=== PATIENT | male | born 1955 | race Caucasian/White ===

== ENCOUNTER 2020-08-08 04:01 | Emergency (ER) | payer MEDICARE ==
--- NOTE | 2020-08-08 07:02 | ER Document Report ---
ED General - General Chief Complaint: Cough Stated Complaint: SHORTNESS OF BREATH/ABDOMINAL PAIN Time Seen by Provider: 08/08/20 06:14 Notes: Patient with history of stroke and communication difficulties presents with couple days of intermittent abdominal pain and diarrhea, with shortness of breath and cough. The cough is minor the shortness of breath is mild, there is no sputum or fever. He has felt fatigued and winded on minor exertion as well. No leg swelling no chest pain no history of CHF. He is answering only yes or no questions given his history of aphasia He had 1 or 2 episodes of diarrhea yesterday with nausea but no vomiting. He points to his lower abdomen generally when asked where it hurts. - Related Data Allergies/Adverse Reactions: No Known Allergies Allergy (Unverified 08/08/20 04:22) Past Medical History - General Information source: Patient - Social History Smoking Status: Former Smoker Frequency of alcohol use: None Drug Abuse: None Family History: None Review of Systems - Review of Systems Notes: REVIEW OF SYSTEMS GEN: Denies fever, chills, weight loss ENT: Denies sore throat, nasal discharge, ear pain EYES: Denies blurry vision, eye pain, discharge CV: Denies chest pain, palpitations, edema RESP: As of breath mild cough GI: Blunt pain diarrhea MSK: Denies joint pain/swelling, edema, SKIN: Denies rash, skin lesions LYMPH: Denies swollen glands/lymph nodes NEURO: Denies headache, focal weakness or numbness, dizziness PSYCH: Denies depression, suicidal or homicidal ideation PHYSICAL EXAMINATION General: No acute distress, well-nourished Head: Atraumatic, normocephalic ENT: Mouth normal, oropharynx moist, no exudates or tonsillar enlargement Eyes: Conjunctiva normal, pupils equal, lids normal Neck: No JVD, supple, no guarding CVS: Normal rate, regular rhythm, no murmurs Resp: No resp distress, equal and normal breath sounds bilaterally GI: Lower abdominal tenderness without rebound or guarding Ext: No deformities, no edema, normal range of motion in upper and lower ext Back: No CVA or midline TTP Skin: No rash, warm Lymphatic: No lymphadeopathy noted Neuro: Awake, alert. Face symmetric. GCS 15. Physical Exam - Vital signs Vitals: Temp Pulse Resp BP Pulse Ox 98.1 F 104 H 18 136/95 H 97 08/08/20 04:12 08/08/20 04:12 08/08/20 04:12 08/08/20 04:12 08/08/20 04:12 Course - Re-evaluation Re-evalutation: 08/08/20 08:18 Patient has lower abdominal pain diarrhea and cough concerning for COVID-19 gastroenteritis diverticulitis or other intra-abdominal infectious source His white count is normal his labs look okay Covid is pending He asked the nurses to leave and I went in and got him to stay for a CT given that he has some hematuria. He then told nursing he wanted to leave again, I met with him again at age 17 and we had a full AGAINST MEDICAL ADVICE conversation during which he expressed a desire to leave Patient appears to be making a decision consistent with his own values, of normal intelligence not intoxicated and able to refuse care Standard precautions given I have discussed with the patient there likely diagnosis, aftercare plan, follow-up plans and my usual and customary return precautions. They verbalized understanding of this. Please note that clinical decision making for this patient was made during the 2019 pandemic of novel coronavirus which caused a significant strain on the healthcare system including at this particular facility. Criteria for admission, discharge and level of care decisions as well as treatment decisions have necessarily changed. - Vital Signs Vital signs: Temp Pulse Resp BP Pulse Ox 98.1 F 104 H 18 136/95 H 97 08/08/20 04:12 08/08/20 04:12 08/08/20 04:12 08/08/20 04:12 08/08/20 04:12 - Laboratory Results Result Diagrams: 08/08/20 06:48 08/08/20 06:48 Laboratory Results Interpreted: 08/08/20 08/08/20 08/08/20 06:48 06:48 06:48 Band Neutrophils % 1 L Sodium 133.7 L Glucose 217 H Urine Protein 30 H Urine Blood MODERATE H Urine Ascorbic Acid 20 H Critical Laboratory Results Reviewed: No Critical Results - Radiology Results Critical Radiology Results Reviewed: No Critical Results - EKG Interpretation by Me EKG shows normal: Sinus rhythm Rate: Normal Rhythm: NSR When compared to previous EKG there are: Previous EKG unavailable Additional EKG results interpreted by me: 08/08/20 07:[address] depression or elevation no T wave inversion no arrhythmia Discharge - Discharge Clinical Impression: Abdominal pain Qualifiers: Abdominal location: unspecified location Qualified Code(s): R10.9 - Unspecified abdominal pain Condition: Fair Disposition: AGAINST MEDICAL ADVICE Instructions: COVID-19 Guidance for Persons Under Investigation, Abdominal Pain ([facility]) Additional Instructions: Return to the emergency room at any point to finish your testing for abdominal pain follow-up with your primary care doctor soon as possible as well
[2020-08-08 07:14] LABS: APPEARANCE,URINE SLIGHTLY-CLOUDY; BILIRUBIN,URINE NEGATIVE (NEGATIVE); COLOR,URINE YELLOW; GLUCOSE, URINE NEGATIVE (NEGATIVE); KETONES,URINE NEGATIVE (NEGATIVE); LEUKOCYTE ESTERASE,URINE NEGATIVE (NEGATIVE); NITRITE,URINE NEGATIVE (NEGATIVE); PROTEIN,URINE 30 mg/dL (NEGATIVE); URINE SPECIFIC GRAVITY 1.018; UROBILINOGEN,URINE NEGATIVE mg/dL (<2.0)
[2020-08-08 07:20] LABS: HEMATOCRIT 44.3 % (37.9-51.0); HEMOGLOBIN 15.4 g/dL (13.5-17.0); MEAN CORPUSCULAR HEMOGLOBIN 30.5 pg (27.0-33.4); MEAN CORPUSCULAR HGB CONC 34.7 g/dL (32.0-36.0); MEAN CORPUSCULAR VOLUME 88 fl (80-97); PLATELET COUNT 160 10^3/uL (150-450); RED BLOOD COUNT 5.04 10^6/uL (4.35-5.55); RED CELL DISTRIBUTION WIDTH 13.5 % (11.5-14.0); WHITE BLOOD COUNT 8.6 10^3/uL (4.0-10.5)
--- NOTE | 2020-08-08 07:37 | RADIOLOGY REPORT (SQ) ---
EXAM DESCRIPTION: X-ray single view chest. CLINICAL HISTORY: 65 years Male, sob COMPARISON: None. TECHNIQUE: Single portable x-ray view of the chest performed on 08/08/2020 at 6:56 AM FINDINGS: The lungs are well expanded and are clear. There is no evidence of a pneumothorax. The cardiac silhouette is normal in size and configuration. The mediastinal contours are normal. No acute osseous abnormality is identified. No focal soft tissue abnormalities are seen. Lines and tubes: None. IMPRESSION: No evidence of acute intrathoracic disease.
[2020-08-08 07:40] LABS: ALBUMIN 4.2 g/dL (3.5-5.0); ALKALINE PHOSPHATASE 113 U/L (38-126); ANION GAP 9 (5-19); ASPARTATE AMINO TRANSFERASE 22 U/L (17-59); BILIRUBIN,TOTAL 0.6 mg/dL (0.2-1.3); BLOOD UREA NITROGEN 14 mg/dL (7-20); CALCIUM 9.3 mg/dL (8.4-10.2); CARBON DIOXIDE 26 mmol/L (22-30); CHLORIDE 99 mmol/L (98-107); GLUCOSE 217 mg/dL (75-110); POTASSIUM 3.8 mmol/L (3.6-5.0); TOTAL PROTEIN 6.8 g/dL (6.3-8.2)
[2020-08-08 07:49] LABS: ABSOLUTE LYMPHOCYTES# (MANUAL) 2.2 10^3/uL (0.5-4.7); ABSOLUTE MONOCYTES # (MANUAL) 0.9 10^3/uL (0.1-1.4); BAND NEUTROPHILS % (MANUAL) 1 % (3-5); BASOPHILS % (MANUAL) 0 % (0-2); EOSINOPHILS % (MANUAL) 0 % (0-6); LYMPHOCYTES % (MANUAL) 20 % (13-45); MONOCYTES % (MANUAL) 11 % (3-13); POLYCHROMASIA SLIGHT; SEGMENTED NEUTROPHILS % (MAN) 63 % (42-78); TOTAL CELLS COUNTED 100
[2020-08-08 07:50] LABS: PLATELET COMMENT ADEQUATE
[2020-08-08 08:33] VITALS: BP 130/90
--- NOTE | 2020-08-08 18:54 | EKG REPORT ---
SEVERITY:- NORMAL ECG - SINUS RHYTHM : Confirmed by: Lenny Hernandez 08-Aug-2020 18:53:55
== END 2020-08-08 08:34 | disposition left against medical advice (07) ==
LOC: ER 04:01
DX: U07.1 COVID-19 (principal); R10.9 Unspecified abdominal pain; R05 Cough; R06.02 Shortness of breath; R19.7 Diarrhea, unspecified; R53.83 Other fatigue; R47.01 Aphasia; R10.30 Lower abdominal pain, unspecified; Z87.891 Personal history of nicotine dependence
CPT/HCPCS: 93005; 99285; 36415; 83735; 85025; 80053; 81001; 71045; 93010; U0003; C9803; 87635

== ENCOUNTER 2020-08-15 13:02 | Emergency (ER) | payer MEDICARE ==
[2020-08-15 13:14] VITALS: BP 112/72
--- NOTE | 2020-08-15 15:45 | RADIOLOGY REPORT (SQ) ---
EXAM DESCRIPTION: CHEST SINGLE VIEW IMAGES COMPLETED DATE/TIME: 08/15/2020 12:33 pm REASON FOR STUDY: cough, COVID+ COMPARISON: 08/08/2020 EXAM PARAMETERS: NUMBER OF VIEWS: One view. TECHNIQUE: Single frontal radiographic view of the chest acquired. RADIATION DOSE: NA LIMITATIONS: None. FINDINGS: LUNGS AND PLEURA: New patchy airspace opacities in the right lung, more pronounced in the periphery. There are some mild left lower peripheral opacities also increased from prior. No pleura l effusion or pneumothorax. MEDIASTINUM AND HILAR STRUCTURES: No masses. Contour normal. HEART AND VASCULAR STRUCTURES: Heart normal in size. Normal vasculature. BONES: No acute findings. HARDWARE: None in the chest. OTHER: No other significant finding. IMPRESSION: New patchy peripheral opacities, right greater than left. TECHNICAL DOCUMENTATION: JOB ID: [id number] 2010 [employer]- All Rights Reserved Reading location - IP/workstation name: [email or web address]
--- NOTE | 2020-08-15 16:29 | ER Document Report ---
ED Respiratory Problem - General Chief Complaint: Flu Symptoms Stated Complaint: COUGH,CONGESTION Time Seen by Provider: 08/15/20 14:31 Primary Care Provider: SRIDHAR PÉREZ MD [ACTIVE STAFF] - Follow up as needed - HPI Notes: Patient is a 65 y/o male who presents with cough and nasal congestion that has been ongoing for the past nine days. Patient was seen in the ED on 08/08/2020 and tested positive for COVID-19. He reports myalgias and fatigue but denies chest pain, shortness of breath, abdominal pain, vomiting, diarrhea and fever. He has not been taking any medications for relief. - Related Data Allergies/Adverse Reactions: No Known Allergies Allergy (Unverified 08/08/20 04:22) Past Medical History - General Information source: Patient - Social History Smoking Status: Never Smoker Frequency of alcohol use: None Drug Abuse: None Family History: None - Past Medical History Cardiac Medical History: Reports: Hx Heart Attack - 2015, Hx Hypercholesterolemia, Hx Hypertension Endocrine Medical History: Reports: Hx Diabetes Mellitus Type 2 Review of Systems - Review of Systems Constitutional: See HPI EENT: See HPI Cardiovascular: No symptoms reported Respiratory: See HPI Gastrointestinal: No symptoms reported Genitourinary: No symptoms reported Male Genitourinary: No symptoms reported Musculoskeletal: No symptoms reported Skin: No symptoms reported Hematologic/Lymphatic: No symptoms reported Neurological/Psychological: No symptoms reported Physical Exam - Vital signs Vitals: Temp Pulse Resp BP Pulse Ox 98.1 F 72 20 112/72 97 08/15/20 13:12 08/15/20 13:12 08/15/20 13:12 08/15/20 13:12 08/15/20 13:12 - Notes Notes: PHYSICAL EXAMINATION: VITALS: Vitals reviewed and within normal limits. GENERAL: Well-appearing, well-nourished and in no acute distress. HEAD: Atraumatic, normocephalic. EYES: Pupils equal, round, and reactive to light, extraocular movements intact, sclera anicteric, conjunctiva are normal. ENT: Nares patent. Moist mucous membranes. Oropharynx clear without exudates. NECK: Normal range of motion, supple without lymphadenopathy. LUNGS: Breath sounds clear to auscultation bilaterally and equal. No wheezes, rales, or rhonchi. HEART: Regular, rate, and rhythm without murmurs. ABDOMEN: Soft, nontender, normoactive bowel sounds. No guarding, no rebound. No masses appreciated. EXTREMITIES: Normal range of motion, no pitting or edema. No cyanosis. NEUROLOGICAL: No focal neurological deficits. Moves all extremities spontaneously and on command. PSYCH: Normal mood, normal affect. SKIN: Warm, Dry, normal turgor, no rashes or lesions noted. Course - Re-evaluation Re-evalutation: Patient is a 65 y/o male who is COVID-19+ who presents with continued cough and congestion. Vital signs are within normal limits. On exam, lungs are clear to auscultation bilaterally. Chest x-ray shows new patchy peripheral opacities, right greater than left. Patient denies shortness of breath and is not hypoxic, patient's pneumonia will be managed outpatient. Prescriptions and prednisone will be given. Advised patient to take multivitamin and melatonin [id number]. Recommended that the patient follow-up with his primary care provider this week. Strict return precautions and follow-up instructions given. Patient understands and is in agreement with the plan. Patient will be discharged home. - Vital Signs Vital signs: Temp Pulse Resp BP Pulse Ox 98.1 F 72 20 112/72 97 08/15/20 13:12 08/15/20 13:12 08/15/20 13:12 08/15/20 13:12 08/15/20 13:12 - Laboratory Results Critical Laboratory Results Reviewed: No Critical Results - Radiology Results Radiology Results Interpreted: Chest X-Ray 08/15/20 15:15 IMPRESSION: New patchy peripheral opacities, right greater than left. Critical Radiology Results Reviewed: No Critical Results Discharge - Discharge Clinical Impression: COVID-19, Pneumonia due to COVID-19 virus, Cough Condition: Stable Disposition: HOME, SELF-CARE Instructions: COVID-19 Guidance for Persons Under Investigation Additional Instructions: You have been diagnosed with a pneumonia. It is very important that you take all of your antibiotics until they are gone even if you are feeling better. Take over the counter melatonin and multivitamin. Please return to the emergency department immediately if you began having worsening shortness of breath, become confused, have worsening pain, pass out, have persistent vomiting that prevents you from being able to drink fluids for more than 12 hours, or have any other symptoms that are worrisome to you. Please follow-up with your primary care doctor in the next 1-2 days. Prescriptions: Prednisone [Deltasone 20 mg Tablet] 60 mg PO DAILY 5 Days #15 tablet Azithromycin [Zithromax 250 mg Tablet] 250 mg PO ASDIR PRN #6 tablet PRN Reason: Referrals: SRIDHAR PÉREZ MD [ACTIVE STAFF] - Follow up as needed
== END 2020-08-15 18:01 | disposition home or self-care (01) ==
LOC: ER 13:02
DX: U07.1 COVID-19 (principal); J12.89 Other viral pneumonia; R05 Cough; R09.81 Nasal congestion; M79.10 Myalgia, unspecified site; R53.83 Other fatigue; I10 Essential (primary) hypertension; E11.9 Type 2 diabetes mellitus without complications
CPT/HCPCS: 71045; 99283

== ENCOUNTER 2020-08-20 09:50 | Inpatient (IN) | payer MEDICARE ==
[2020-08-20] MEDS ORDERED: ALBUTEROL SULFATE 0.083% NEB 2.5 MG/3 ML AMPUL NEB ONE (11:35)
[2020-08-20] MEDS ORDERED: DEXAMETHASONE SOD PHOS INJ 10 MG/1 ML VIAL IV ONE (11:36)
--- NOTE | 2020-08-20 12:00 | RADIOLOGY REPORT (SQ) ---
EXAM DESCRIPTION: CHEST SINGLE VIEW IMAGES COMPLETED DATE/TIME: 08/20/2020 11:34 am REASON FOR STUDY: COVID, worsening SOB COMPARISON: AP view of the chest from 08/15/2020. EXAM PARAMETERS: NUMBER OF VIEWS: One view. TECHNIQUE: An AP view of the chest was obtained. RADIATION DOSE: NA LIMITATIONS: None. FINDINGS: LUNGS AND PLEURA: Increased bilateral upper lobe predominant and peripheral patchy parench ymal opacities. There is no sizable pleural effusion or pneumothorax. MEDIASTINUM AND HILAR STRUCTURES: No mediastinal or hilar contour abnormality. HEART AND VASCULAR STRUCTURES: The cardiac silhouette and pulmonary vasculature are within normal johnson its. BONES: No acute findings. HARDWARE: None in the chest. OTHER: No other finding. IMPRESSION: Increased bilateral upper lobe predominant and peripheral patchy parenchymal opacities. TECHNICAL DOCUMENTATION: JOB ID: [id number] 2010 [employer]- All Rights Reserved Reading location - IP/workstation name: [email or web address]
[2020-08-20 12:20] LABS: ABSOLUTE LYMPHOCYTES (AUTO) 1.5 10^3/uL (0.5-4.7); ABSOLUTE MONOCYTES (AUTO) 1.1 10^3/uL (0.1-1.4); BASOPHILS % (AUTO) 0.1 % (0-2); EOSINOPHILS % (AUTO) 0.3 % (0-6); HEMATOCRIT 39.2 % (37.9-51.0); HEMOGLOBIN 13.9 g/dL (13.5-17.0); LYMPHOCYTES % (AUTO) 13.1 % (13-45); MEAN CORPUSCULAR HEMOGLOBIN 30.3 pg (27.0-33.4); MEAN CORPUSCULAR HGB CONC 35.4 g/dL (32.0-36.0); MEAN CORPUSCULAR VOLUME 86 fl (80-97); MONOCYTES % (AUTO) 9.7 % (3-13); PLATELET COUNT 339 10^3/uL (150-450); RED BLOOD COUNT 4.58 10^6/uL (4.35-5.55); RED CELL DISTRIBUTION WIDTH 13.5 % (11.5-14.0); SEGMENTED NEUTROPHILS % (AUTO) 76.8 % (42-78); TOTAL CELLS COUNTED % (AUTO) 100 %; WHITE BLOOD COUNT 11.7 10^3/uL (4.0-10.5)
[2020-08-20 12:40] LABS: ALBUMIN 3.5 g/dL (3.5-5.0); ALKALINE PHOSPHATASE 142 U/L (38-126); ANION GAP 10 (5-19); ASPARTATE AMINO TRANSFERASE 41 U/L (17-59); BILIRUBIN,DIRECT 0.2 mg/dL (0.0-0.4); BLOOD UREA NITROGEN 15 mg/dL (7-20); CALCIUM 8.9 mg/dL (8.4-10.2); CARBON DIOXIDE 26 mmol/L (22-30); CHLORIDE 96 mmol/L (98-107); GLUCOSE 222 mg/dL (75-110); POTASSIUM 4.1 mmol/L (3.6-5.0); TOTAL PROTEIN 6.5 g/dL (6.3-8.2)
[2020-08-20 13:05] LABS: ARTERIAL BLOOD BASE EXCESS 1.5 mmol/L; ARTERIAL BLOOD H2CO3 0.84 mmol/L (1.05-1.35); ARTERIAL BLOOD O2 SATURATION 95.5 % (94-98); ARTERIAL BLOOD PCO2 27.9 mmHg (35-45); ARTERIAL BLOOD PH 7.53 (7.35-7.45); ARTERIAL BLOOD TOTAL CO2 23.9 mmol/L (23-27)
[2020-08-20 13:06] LABS: ARTERIAL BLOOD FIO2 2.5L
--- NOTE | 2020-08-20 13:40 | ER Document Report ---
ED General - General Chief Complaint: Breathing Difficulty Stated Complaint: COUGH Time Seen by Provider: 08/20/20 10:37 - HPI Notes: 65-year-old male with past medical history for hypertension, diabetes, stroke with residual right-sided weakness and speech difficulties to the emergency department with his for progressively worsening shortness of breath and cough over the past 3 weeks. On August 08 he was diagnosed with Covid. He returned to the emergency department with cough and shortness of breath on August 15. He was given at that time a Z-Oscar and steroids. reports that he got a little bit brother briefly but last night has gotten significantly worse. When patient arrived here in the emergency department his oxygen level was between 88 to 90% on room air. Patient denies any chest pain, headache, body ache. He does admit that he is short of breath. He has residual expressive aphasia from his stroke so he has some difficulty telling his story. He does not currently have a primary care physician. - Related Data Allergies/Adverse Reactions: No Known Allergies Allergy (Unverified 08/08/20 04:22) Past Medical History - General Information source: Patient - Social History Smoking Status: Former Smoker Frequency of alcohol use: None Drug Abuse: None Lives with: Spouse/Significant other Family History: Reviewed & Not Pertinent, Hypertension Patient has homicidal ideation: No - Past Medical History Cardiac Medical History: Reports: Hx Heart Attack - 2015, Hx Hypercholestero lemia, Hx Hypertension Endocrine Medical History: Reports: Hx Diabetes Mellitus Type 2 Review of Systems - Review of Systems Constitutional: denies: Chills, Fever EENT: No symptoms reported Cardiovascular: denies: Chest pain, Palpitations, Dizziness, Lightheaded Respiratory: See HPI, Cough, Short of breath Gastrointestinal: No symptoms reported Genitourinary: No symptoms reported Musculoskeletal: No symptoms reported Skin: No symptoms reported Hematologic/Lymphatic: No symptoms reported Neurological/Psychological: No symptoms reported -: Yes All other systems reviewed and negative Physical Exam - Vital signs Vitals: Temp Pulse Resp BP Pulse Ox 98.3 F 101 H 24 H 128/88 H 91 L 08/19/20 22:00 08/19/20 22:00 08/19/20 22:00 08/19/20 22:00 08/19/20 22:00 Interpretation: Tachycardic, Hypoxic, Tachypneic - Notes Notes: PHYSICAL EXAMINATION: GENERAL: Patient is coughing and tachypneic. He appears to be in mild respiratory distress HEAD: Atraumatic, normocephalic. EYES: Pupils equal round and reactive to light, extraocular movements intact, sclera anicteric, conjunctiva are normal. ENT: nares patent, oropharynx clear without exudates. Moist mucous membranes. TMs clear bilaterally NECK: Normal range of motion, supple without lymphadenopathy LUNGS: Decreased breath sounds particularly on the right lower base. Clear breath sounds on the left. Patient is tachypneic. He is notably hypoxic on room air. He ranges from about 88% to 90%. He improves once we put him on 2 L of oxygen on nasal cannula-he goes up to 95% HEART: Regular rate and rhythm without murmurs, no pitting edema ABDOMEN: Soft, nontender, normoactive bowel sounds. No guarding, no rebound. No masses appreciated. No CVA tenderness NEUROLOGICAL: Noted right arm deficit that from his prior stroke. He has very little use of it. He can ambulate about the room with ease. He also has expressive aphasia. This is also baseline. He is oriented to himself, place, and time. He has no facial droop. PSYCH: Normal mood, normal affect. SKIN: Warm, Dry, normal turgor, no rashes or lesions noted. Course - Re-evaluation Re-evalutation: Discussed patient with Dr. Ramos, my ER attending. He agrees with the plan for admission. Discussed the plan for admission with patient and his . They both agree with the plan. Spoke with Dr. Garibay, hospitalist. He agrees with the plan for admission. Would like him to go to Covid unit. He is aware that the patient just got off azithromycin and I did not add any other antibiotics. Is also aware that the patient seems to be satting okay at 2 L of oxygen on nasal cannula. He is aware of the patient's ABG as well as his worsening chest x-ray. Impression: Covid pneumonia with acute hypoxia and respiratory failure. Patient was given Decadron here in the emergency department as well as an albuterol nebulizer. He still remains hypoxic on room air when he takes oxygen off. He has been admitted to the hospitalist service for Covid pneumonia with acute respiratory failure and hypoxia. - Vital Signs Vital signs: Temp Pulse Resp BP Pulse Ox 98.3 F 101 H 25 H 126/105 H 93 08/19/20 22:00 08/19/20 22:00 08/20/20 12:01 08/20/20 12:00 08/20/20 12:01 - Laboratory Results Result Diagrams: 08/20/20 11:48 08/20/20 11:48 Laboratory Results Interpreted: 08/20/20 08/20/20 08/20/20 11:48 11:48 11:48 WBC 11.7 H Absolute Neuts (auto) 9.0 H Carbonic Acid ABG pH ABG pCO2 ABG pO2 Sodium 132.0 L Chloride 96 L Glucose 222 H Alkaline Phosphatase 142 H NT-Pro-B Natriuret Pep 204 H 08/20/20 12:32 WBC Absolute Neuts (auto) Carbonic Acid 0.84 L ABG pH 7.53 H ABG pCO2 27.9 L ABG pO2 67.0 L Sodium Chloride Glucose Alkaline Phosphatase NT-Pro-B Natriuret Pep Critical Laboratory Results Reviewed: Yes Attending or Supervising Physician who Reviewed Labs: RADHA ARMOS - Radiology Results Critical Radiology Results Reviewed: No Critical Results - EKG Interpretation by Me Additional EKG results interpreted by me: 08/20/20 15:12 Great: 91 Rhythm: Sinus rhythm Interpretation: No STEMI, no ST changes, no significant difference from prior on August 08, 2020 Discharge - Discharge Clinical Impression: Pneumonia due to COVID-19 virus, Hypoxia Condition: Fair Disposition: ADMITTED INPATIENT Admitting Provider: Lani (Hospitalist) Unit Admitted: [facility]
[2020-08-20] MEDS ORDERED: ONDANSETRON HCL INJ/PF 4 MG/2 ML SDV IV PRN (13:46)
[2020-08-20] MEDS ORDERED: IPRATROPIUM/ALBUTEROL 0.5-2.5 MG/3 ML AMPUL NEB PRN (13:46)
[2020-08-20] MEDS: BENZONATATE 100 MG CAPSULE PO SCH ×2 (14:27→22:09)
--- NOTE | 2020-08-20 14:31 | PDOC H&P ---
History of Present Illness Admission Date/PCP: 08/20/20 14:04 Patient complains of: Came in with complaints of cough and shortness of breath for 2 weeks History of Present Illness: DEANN EM is a 65 year old male history of hypertension, diabetes mellitus, stroke 6 years ago with right-sided weakness and difficulty in articulation was tested positive for COVID-August 08 came to the ER with complaints of shortness of breath associated with cough. Pulse ox is in the 80s on arrival requiring oxygen supplementation. At the time of my examination pulse ox is 96% 2 L. Chest x-ray indicated above worsening opacifications. WBC count is elevated 11,700. Acute phase reactant lab work is pending. Medical consult was called for admission. Patient agreed to stay in the hospital for further management. Past Medical History Cardiac Medical History: Reports: Myocardial Infarction - 2015, Hyperlipidema, H ypertension Endocrine Medical History: Reports: Diabetes Mellitus Type 2 Past Surgical History Past Surgical History: Reports: None Social History Information Source: Patient Smoking Status: Unknown if Ever Smoked Electronic Cigarette use?: No Hx Recreational Drug Use: No Hx Prescription Drug Abuse: No - Advance Directive Resuscitation Status: Full Code Family History Family History: None Parental Family History Reviewed: Yes - Family history of hypertension, diabetes mellitus Children Family History Reviewed: Yes Sibling(s) Family History Reviewed.: Yes Medication/Allergy Home Medications: Azithromycin [Zithromax 250 mg Tablet] 250 mg PO ASDIR PRN #6 tablet 08/15/20 Prednisone [Deltasone 20 mg Tablet] 60 mg PO DAILY 5 Days #15 tablet 08/15/20 Allergies/Adverse Reactions: No Known Allergies Allergy (Unverified 08/08/20 04:22) Review of Systems Constitutional: PRESENT: fatigue, weakness. ABSENT: fever(s), night sweats Eyes: ABSENT: visual disturbances Ears: ABSENT: hearing changes Nose, Mouth, and Throat: ABSENT: sore throat Cardiovascular: PRESENT: dyspnea on exertion. ABSENT: edema, orthropnea, palpit ations Respiratory: PRESENT: dyspnea Gastrointestinal: ABSENT: abdominal pain, constipation, diarrhea, hematemesis, hematochezia, nausea, vomiting Genitourinary: ABSENT: dysuria, hematuria Musculoskeletal: ABSENT: joint swelling Integumentary: ABSENT: rash, wounds Neurological: ABSENT: abnormal gait, abnormal speech, confusion, dizziness, focal weakness, syncope Psychiatric: ABSENT: anxiety, depression, homidical ideation, suicidal ideation Physical Exam Vital Signs: Temp Pulse Resp BP Pulse Ox 98.3 F 101 H 25 H 126/105 H 93 08/19/20 22:00 08/19/20 22:00 08/20/20 12:01 08/20/20 12:00 08/20/20 12:01 Intake & Output 08/19/20 08/20/20 08/21/20 06:59 06:59 06:59 Weight 93.3 kg General appearance: PRESENT: no acute distress, cooperative, well-developed Head exam: PRESENT: atraumatic Eye exam: PRESENT: PERRLA Ear exam: PRESENT: normal external ear exam Mouth exam: PRESENT: neck supple Teeth exam: PRESENT: poor dentation Neck exam: ABSENT: carotid bruit, JVD, lymphadenopathy, thyromegaly Respiratory exam: PRESENT: decreased breath sounds Cardiovascular exam: PRESENT: RRR. ABSENT: diastolic murmur, rubs, systolic murmur GI/Abdominal exam: PRESENT: normal bowel sounds, soft. ABSENT: distended, guarding, mass, organolmegaly, rebound, tenderness Rectal exam: PRESENT: deferred Extremities exam: PRESENT: full ROM. ABSENT: calf tenderness, clubbing, pedal edema Neurological exam: PRESENT: alert, altered, other - Patient has difficulty in articulation of speech, right-sided weakness present. Psychiatric exam: PRESENT: appropriate affect, normal mood. ABSENT: homicidal ideation, suicidal ideation Results Laboratory Results: 08/20/20 11:48 08/20/20 11:48 08/20/20 08/20/20 08/20/20 11:48 11:48 11:48 WBC 11.7 H RBC 4.58 Hgb 13.9 Hct 39.2 MCV 86 MCH 30.3 MCHC 35.4 RDW 13.5 Plt Count 339 Seg Neutrophils % 76.8 Carbonic Acid HCO3/H2CO3 Ratio ABG pH ABG pCO2 ABG pO2 ABG HCO3 ABG O2 Saturation ABG Base Excess FiO2 Sodium 132.0 L Potassium 4.1 Chloride 96 L Carbon Dioxide 26 Anion Gap 10 BUN 15 Creatinine 0.71 Est GFR ( Amer) > 60 Glucose 222 H Lactic Acid 1.5 Calcium 8.9 Total Bilirubin 1.0 AST 41 Alkaline Phosphatase 142 H Total Protein 6.5 Albumin 3.5 08/20/20 12:32 WBC RBC Hgb Hct MCV MCH MCHC RDW Plt Count Seg Neutrophils % Carbonic Acid 0.84 L HCO3/H2CO3 Ratio 27:1 ABG pH 7.53 H ABG pCO2 27.9 L ABG pO2 67.0 L ABG HCO3 23.0 ABG O2 Saturation 95.5 ABG Base Excess 1.5 FiO2 2.5L Sodium Potassium Chloride Carbon Dioxide Anion Gap BUN Creatinine Est GFR ( Amer) Glucose Lactic Acid Calcium Total Bilirubin AST Alkaline Phosphatase Total Protein Albumin 08/20/20 11:48 NT-Pro-B Natriuret Pep 204 H Impressions: Chest X-Ray 08/20/20 10:54 IMPRESSION: Increased bilateral upper lobe predominant and peripheral patchy parenchymal opacities. Assessment and Plan - Diagnosis (1) Pneumonia due to COVID-19 virus Is this a current diagnosis for this admission?: Yes Plan: 2119-patient is going to be admitted to [facility] as an inpatient with a diagnosis of COVID-19 pneumonia. Started on convulsant plasma, dexamethasone 6 mg IV daily, multivitamins including zinc, vitamin D, vitamin C, started on IV Rocephin 1 g daily, Zithromax 500 mg IV daily. Patient will be on treatment dose of Lovenox. bllod Cultures are pending patient started on DuoNeb nebulizations. (2) Hypoxia Is this a current diagnosis for this admission?: Yes Plan: 08/20/2020-patient came in with acute hypoxic respiratory failure most likely secondary to COVID-19 pneumonia. On oxygen supplementations. To continue DuoNeb nebulizations. (3) HTN (hypertension) Is this a current diagnosis for this admission?: No Plan: 08/20/2020-patient has history of chronic essential hypertension to resume his home medications. (4) Diabetes Is this a current diagnosis for this admission?: No Plan: 08/20/2020-patient has history of type [address] him on insulin sliding scale before meals and at bedtime. To resume his home medications. To check for hemoglobin A1c. (5) CVA (cerebral vascular accident) Is this a current diagnosis for this admission?: No Plan: 08/20/2020-patient history of CVA 6 years ago affecting the speech and right side of the body. To continue aspirin, atorvastatin at this time. - Time Anticipated Discharge Disposition: Home, Self Care Anticipated Discharge Timeframe: 5 days
[2020-08-20] MEDS: CEFTRIAXONE 1 GM/D5W RTU 1 GM/50 ML RTUPB IV SCH (15:16)
[2020-08-20 15:50] LABS: APPEARANCE,URINE CLEAR; BILIRUBIN,URINE NEGATIVE (NEGATIVE); COLOR,URINE YELLOW; GLUCOSE, URINE NEGATIVE (NEGATIVE); KETONES,URINE NEGATIVE (NEGATIVE); LEUKOCYTE ESTERASE,URINE NEGATIVE (NEGATIVE); NITRITE,URINE NEGATIVE (NEGATIVE); PROTEIN,URINE NEGATIVE (NEGATIVE); URINE SPECIFIC GRAVITY 1.006; UROBILINOGEN,URINE NEGATIVE mg/dL (<2.0)
[2020-08-20] MEDS: PANTOPRAZOLE SODIUM 40 MG TABLET.DR PO SCH (17:20)
--- NOTE | 2020-08-20 17:46 | RADIOLOGY REPORT (SQ) ---
EXAM DESCRIPTION: CTA CHEST IMAGES COMPLETED DATE/TIME: 08/20/2020 5:18 pm REASON FOR STUDY: r/o pe COMPARISON: None. TECHNIQUE: CT scan of the chest performed using helical scanning technique with dynamic intravenous contrast injection. Images reviewed with lung, soft tissue and bone windows. Reconstructed coronal and sagittal MPR images reviewed. Additional 3 dimensional post-processing performed to develop Maximal Intensity Projection images (MO P). All images stored on PACS. All CT scanners at this facility use dose modulation, iterative reconstruction, and/or weight based d osing when appropriate to reduce radiation dose to as low as reasonably achievable (ALARA). [facility]: Dose Right [facility]: CareDose [facility]: Dose Right [facility]: Teradose 4D [facility]: Health: [place] CONTRAST TYPE AND DOSE: contrast/concentration: Isovue 350.00 mmol/ml; Total Contrast Delivered: 75. 0 ml; Total Saline Delivered: 54.0 ml Contrast bolus optimized for the pulmonary arteries. Not diagnostic for the aorta. RENAL FUNCTION: Creatinine - 0.71 BUN=15 RADIATION DOSE: CT Rad equipment meets quality standard of care and radiation dose reduction techniq ues were employed. CTDIvol: 9.4 - 15.2 mGy. DLP: 615 mGy-cm. . LIMITATIONS: None. FINDINGS: LUNGS AND PLEURA: Bilateral multifocal peripheral ground-glass opacities in the lungs wit h focal areas of consolidation mainly in the upper 2/3's of the lungs, more so on the right. Clinica l imaging features raise the question of COVID pneumonia. Other diagnostic considerations include at ypical infections, inflammatory/infectious etiologies. No pneumothorax or pleural effusion. The leila tral airways are clear. AORTA AND GREAT VESSELS: No aneurysm. Contrast bolus not optimized for the aorta. HEART: No pericardial effusion. Focal areas of coronary artery calcifications. PULMONARY ARTERIES: No emboli visualized in the main pulmonary arteries or the segmental branches. HILAR AND MEDIASTINAL STRUCTURES: No identified masses or abnormal nodes. HARDWARE: None in the chest. UPPER ABDOMEN: Splenule, normal anatomic variant. Limited exam. THYROID AND OTHER SOFT TISSUES: No masses. No adenopathy. BONES: Small bone island in one of the upper thoracic vertebrae. 3D MIPS: Confirm above findings. OTHER: No other significant finding. IMPRESSION: 1. No evidence for acute pulmonary emboli 2. Bilateral multifocal peripheral ground-glass opacities in the lungs with focal areas of consolida tion, mainly in the upper 2/3's of the lungs, more so on the right. Clinical imaging features raise the question of COVID pneumonia. Other diagnostic considerations include atypical infections, inflam matory/infectious etiologies. COMMENT: Quality ID # [id number]: Final reports with documentation of one or more dose reduction techniques (e.g., Automated exposure control, adjustment of the mA and/or kV according to patient size, use of iterative reconstruction technique) TECHNICAL DOCUMENTATION: JOB ID: [id number] 2010 [employer]- All Rights Reserved Reading location - IP/workstation name: [email or web address]
[2020-08-20] MEDS: ASCORBIC ACID 500 MG TABLET PO SCH (19:01)
[2020-08-20] MEDS: AZITHROMYCIN 500 MG in DEXTROSE 5%-WATER 250 ML IV SCH (19:03)
[2020-08-20] MEDS ORDERED: ATORVASTATIN CALCIUM 20 MG TABLET PO SCH (22:00)
[2020-08-20] MEDS: ENOXAPARIN SODIUM INJ 100 MG/1 ML DISP.SYRIN SUBCUT SCH (22:09)
[2020-08-21] MEDS: NORMAL SALINE 1000 ML 1,000 ML IV PRN ×2 (03:50→17:29)
[2020-08-21] MEDS: PANTOPRAZOLE SODIUM 40 MG TABLET.DR PO SCH ×2 (06:17→17:29)
[2020-08-21] MEDS: BENZONATATE 100 MG CAPSULE PO SCH ×2 (06:17→13:13)
[2020-08-21 06:49] LABS: ABSOLUTE LYMPHOCYTES (AUTO) 1.3 10^3/uL (0.5-4.7); ABSOLUTE MONOCYTES (AUTO) 1.1 10^3/uL (0.1-1.4); ABSOLUTE NEUT (AUTO) 7.5 10^3/uL (1.7-8.2); BASOPHILS % (AUTO) 0.4 % (0-2); EOSINOPHILS % (AUTO) 0.1 % (0-6); HEMATOCRIT 39.6 % (37.9-51.0); HEMOGLOBIN 13.7 g/dL (13.5-17.0); MEAN CORPUSCULAR HGB CONC 34.5 g/dL (32.0-36.0); MEAN CORPUSCULAR VOLUME 87 fl (80-97); MONOCYTES % (AUTO) 11.1 % (3-13); PLATELET COUNT 331 10^3/uL (150-450); RED BLOOD COUNT 4.56 10^6/uL (4.35-5.55); RED CELL DISTRIBUTION WIDTH 13.6 % (11.5-14.0); SEGMENTED NEUTROPHILS % (AUTO) 75.4 % (42-78); TOTAL CELLS COUNTED % (AUTO) 100 %; WHITE BLOOD COUNT 9.9 10^3/uL (4.0-10.5)
[2020-08-21 07:17] LABS: ALBUMIN 3.4 g/dL (3.5-5.0); ALKALINE PHOSPHATASE 129 U/L (38-126); ANION GAP 10 (5-19); ASPARTATE AMINO TRANSFERASE 30 U/L (17-59); BILIRUBIN,DIRECT 0.2 mg/dL (0.0-0.4); BILIRUBIN,TOTAL 0.8 mg/dL (0.2-1.3); BLOOD UREA NITROGEN 18 mg/dL (7-20); C-REACTIVE PROTEIN 39.7 mg/L (<10.0); CALCIUM 8.9 mg/dL (8.4-10.2); CARBON DIOXIDE 25 mmol/L (22-30); CHLORIDE 102 mmol/L (98-107); CREATINE KINASE 104 U/L (55-170); GLUCOSE 256 mg/dL (75-110); POTASSIUM 4.3 mmol/L (3.6-5.0); TOTAL PROTEIN 6.3 g/dL (6.3-8.2)
[2020-08-21] MEDS: ZINC SULFATE 220 MG CAPSULE PO SCH (09:02)
[2020-08-21] MEDS: ASCORBIC ACID 500 MG TABLET PO SCH ×2 (09:02→17:29)
[2020-08-21] MEDS: CHOLECALCIFEROL (D3) 1,000 UNIT (25 MCG) TABLET PO SCH (09:02)
[2020-08-21] MEDS: ASPIRIN 81 MG TABLET, ENT COATED PO SCH (09:02)
[2020-08-21] MEDS: ENOXAPARIN SODIUM INJ 100 MG/1 ML DISP.SYRIN SUBCUT SCH (09:02)
[2020-08-21] MEDS: DEXAMETHASONE SOD PHOS INJ 10 MG/1 ML VIAL IV SCH (09:03)
[2020-08-21] MEDS ORDERED: AZITHROMYCIN INJ 500 MG VIAL IV SCH (10:00)
--- NOTE | 2020-08-21 12:22 | EKG REPORT ---
SEVERITY:- NORMAL ECG - SINUS RHYTHM : Confirmed by: Ulisses Garcia MD 21-Aug-2020 12:21:59
[2020-08-21] MEDS: CEFTRIAXONE 1 GM/D5W RTU 1 GM/50 ML RTUPB IV SCH (13:12)
--- NOTE | 2020-08-21 14:01 | PDOC PROGRESS REPORT ---
Subjective Date:: 08/21/20 Subjective:: Resting comfortably in bed. Appears to be on 2 L nasal cannula. He states that if he gets up and walks to the bathroom he does not get markedly short of breath. Appetite has only been fair. Reason For Visit: COVID-19 Physical Exam Vital Signs: Temp Pulse Resp BP Pulse Ox 98.8 F 72 18 142/88 H 96 08/21/20 10:00 08/21/20 11:49 08/21/20 11:49 08/21/20 11:49 08/21/20 11:49 Intake & Output 08/20/20 08/21/20 08/22/20 06:59 06:59 06:59 Intake Total 740 247 Balance 740 247 Weight 93.3 kg 94.5 kg General appearance: PRESENT: no acute distress, cooperative, well-developed Head exam: PRESENT: atraumatic, normocephalic Ear exam: PRESENT: normal external ear exam. ABSENT: bleeding, drainage Respiratory exam: PRESENT: rales - Faint on the right, symmetrical, unlabored. ABSENT: rhonchi, tachypnea, wheezes Cardiovascular exam: PRESENT: RRR, +S1, +S2. ABSENT: bradycardia, diastolic murmur, irregular rhythm, systolic murmur, tachycardia GI/Abdominal exam: PRESENT: normal bowel sounds, soft. ABSENT: distended, guarding, tenderness Rectal exam: PRESENT: deferred Gentrourinary exam: ABSENT: indwelling catheter Extremities exam: ABSENT: pedal edema Musculoskeletal exam: PRESENT: ambulatory, normal inspection. ABSENT: deformity, dislocation Neurological exam: PRESENT: alert, awake, oriented to person, oriented to place, oriented to time, oriented to situation, CN II-XII grossly intact. ABSENT: altered Psychiatric exam: PRESENT: appropriate affect. ABSENT: agitated, anxious Focused psych exam: ABSENT: delusional, paranoid, restlessness Skin exam: PRESENT: dry, normal color, warm. ABSENT: rash Results Laboratory Results: 08/21/20 05:26 08/21/20 05:26 08/20/20 08/20/20 08/21/20 15:38 15:52 05:26 WBC 9.9 RBC 4.56 Hgb 13.7 Hct 39.6 MCV 87 MCH 30.0 MCHC 34.5 RDW 13.6 Plt Count 331 Seg Neutrophils % 75.4 Sodium Potassium Chloride Carbon Dioxide Anion Gap BUN Creatinine Est GFR ( Amer) Glucose Calcium Ferritin Total Bilirubin AST Alkaline Phosphatase C-Reactive Protein Total Protein Albumin Urine Color YELLOW Urine Appearance CLEAR Urine pH 7.0 Ur Specific [place] 1.006 Urine Protein NEGATIVE Urine Glucose (UA) NEGATIVE Urine Ketones NEGATIVE Urine Blood NEGATIVE Urine Nitrite NEGATIVE Ur Leukocyte Esterase NEGATIVE Urine WBC (Auto) 0 Urine RBC (Auto) 1 Blood Type O POSITIVE 08/21/20 05:26 WBC RBC Hgb Hct MCV MCH MCHC RDW Plt Count Seg Neutrophils % Sodium 137.3 Potassium 4.3 Chloride 102 Carbon Dioxide 25 Anion Gap 10 BUN 18 Creatinine 0.75 Est GFR ( Amer) > 60 Glucose 256 H Calcium 8.9 Ferritin 599.00 H Total Bilirubin 0.8 AST 30 Alkaline Phosphatase 129 H C-Reactive Protein 39.7 H Total Protein 6.3 Albumin 3.4 L Urine Color Urine Appearance Urine pH Ur Specific [place] Urine Protein Urine Glucose (UA) Urine Ketones Urine Blood Urine Nitrite Ur Leukocyte Esterase Urine WBC (Auto) Urine RBC (Auto) Blood Type 08/20/20 14:54 Blood Blood Culture (PCR) - Final Streptococcus Species 08/20/20 08/21/20 11:48 05:26 Creatine Kinase 104 NT-Pro-B Natriuret Pep 204 H Impressions: Chest/Abdomen CTA 08/20/20 00:00 IMPRESSION: 1. No evidence for acute pulmonary emboli 2. Bilateral multifocal peripheral ground-glass opacities in the lungs with focal areas of consolidation, mainly in the upper 2/3's of the lungs, more so on the right. Clinical imaging features raise the question of COVID pneumonia. Other diagnostic considerations include atypical infections, infla mmatory/infectious etiologies. Chest X-Ray 08/20/20 10:54 IMPRESSION: Increased bilateral upper lobe predominant and peripheral patchy parenchymal opacities. 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: without half-way use Qualified Code(s): E11.65 - Type 2 diabetes mellitus with hyperglycemia Is this a current diagnosis for this admission?: Yes (4) HTN (hypertension) Qualifiers: Hypertension type: essential hypertension Qualified Code(s): I10 - Essential (primary) hypertension Is this a current diagnosis for this admission?: Yes (5) History of CVA (cerebrovascular accident) Is this a current diagnosis for this admission?: Yes (6) Hyperlipidemia due to type 2 diabetes mellitus Is this a current diagnosis for this admission?: Yes (7) Depression as late effect of cerebrovascular accident (CVA) Is this a current diagnosis for this admission?: Yes - Plan Summary Summary: (1) Pneumonia due to COVID-19 virus Is this a current diagnosis for this admission?: Yes Plan: 2119-patient is going to be admitted to [facility] as an inpatient with a diagnosis of COVID-19 pneumonia. Started on convulsant plasma, dexamethasone 6 mg IV daily, multivitamins including zinc, vitamin D, vitamin C, started on IV Rocephin 1 g daily, Zithromax 500 mg IV daily. Patient will be on treatment dose of Lovenox. bllod Cultures are pending patient started on DuoNeb nebulizations. (2) acute respiratory failure with hypoxia Is this a current diagnosis for this admission?: Yes Plan: 08/20/2020-patient came in with acute hypoxic respiratory failure most likely secondary to COVID-19 pneumonia. On oxygen supplementations. To continue DuoNeb nebulizations. (3) HTN (hypertension) Is this a current diagnosis for this admission?: No Plan: 08/20/2020-patient has history of chronic essential hypertension to resume his h ome medications. (4) hyperglycemia due to diabetes mellitus Is this a current diagnosis for this admission?: No Plan: 08/20/2020-patient has history of type [address] him on insulin sliding scale before meals and at bedtime. To resume his home medications. To check for hemoglobin A1c. (5) history of CVA Is this a current diagnosis for this admission?: No Plan: 08/20/2020-patient history of CVA 6 years ago affecting the speech and right side of the body. To continue aspirin, atorvastatin at this time. (6) depression (7) hyperlipidemia 08/21/2020 Acute hypoxic respiratory failure secondary to Covid pneumonia-continue antibiotics, steroids, supplements and supplemental oxygen as needed. Nebulizer treatments available as needed. Will discontinue therapeutic Lovenox and start prophylactic dose. Resume aspirin and Plavix for history of heart disease and stroke. Resume carvedilol, atorvastatin and Escitalopram. Continue diabetic/cardiac diet and resume Metformin. Accu-Cheks and sliding scale coverage. - Time Time Spent with patient: 15-24 minutes Medications reviewed and adjusted accordingly: Yes Anticipated Discharge Disposition: Home, Self Care Anticipated Discharge Timeframe: within 72 hours
[2020-08-21] MEDS ORDERED: DEXTROSE 50%-WATER 25 GM/50 ML DISP.SYRIN IV PRN ×2 (16:38)
[2020-08-21] MEDS ORDERED: DEXTROSE 40% GEL 15 GM TUBE PO PRN ×2 (16:38)
[2020-08-21] MEDS ORDERED: GLUCAGON,HUMAN RECOMB 1 MG INJ IM PRN (16:38)
[2020-08-21] MEDS ORDERED: HYDROXYZINE PAMOATE 25 MG CAPSULE PO PRN (16:46)
[2020-08-21] MEDS ORDERED: PROMETHAZINE HCL 25 MG TABLET PO PRN (16:47)
[2020-08-21] MEDS: ACETAMINOPHEN 325 MG TABLET PO PRN ×2 (17:28→23:41)
[2020-08-21] MEDS: AZITHROMYCIN 500 MG in DEXTROSE 5%-WATER 250 ML IV SCH (17:28)
[2020-08-21] MEDS: METFORMIN HCL 500 MG TABLET PO SCH (17:29)
[2020-08-21] MEDS: CARVEDILOL 6.25 MG TABLET PO SCH (23:40)
[2020-08-21] MEDS: INSULIN REG, HUMAN 100 UNIT/ML 3 ML VIAL (PYX) SUBCUT SCH (23:41)
[2020-08-22] MEDS: PANTOPRAZOLE SODIUM 40 MG TABLET.DR PO SCH (06:30)
[2020-08-22] MEDS: BENZONATATE 100 MG CAPSULE PO SCH ×3 (06:30→13:08)
[2020-08-22 06:51] LABS: ANION GAP 5 (5-19); BLOOD UREA NITROGEN 14 mg/dL (7-20); CALCIUM 8.7 mg/dL (8.4-10.2); CARBON DIOXIDE 25 mmol/L (22-30); CHLORIDE 106 mmol/L (98-107); GLUCOSE 104 mg/dL (75-110)
[2020-08-22] MEDS ORDERED: ATORVASTATIN CALCIUM 80 MG TABLET PO SCH (10:00)
[2020-08-22] MEDS ORDERED: ESCITALOPRAM OXALATE 10 MG TABLET PO SCH (10:00)
[2020-08-22] MEDS ORDERED: ENOXAPARIN SODIUM INJ 40 MG/0.4 ML DISP.SYRIN SUBCUT SCH (10:00)
[2020-08-22] MEDS ORDERED: CLOPIDOGREL BISULFATE 75 MG TABLET PO SCH (10:00)
[2020-08-22] MEDS: INSULIN REG, HUMAN 100 UNIT/ML 3 ML VIAL (PYX) SUBCUT SCH ×2 (11:19→11:34)
[2020-08-22] MEDS: ASCORBIC ACID 500 MG TABLET PO SCH (12:12)
[2020-08-22] MEDS: ZINC SULFATE 220 MG CAPSULE PO SCH (12:12)
[2020-08-22] MEDS: CHOLECALCIFEROL (D3) 1,000 UNIT (25 MCG) TABLET PO SCH (12:13)
[2020-08-22] MEDS: CARVEDILOL 6.25 MG TABLET PO SCH (12:13)
[2020-08-22] MEDS: DEXAMETHASONE SOD PHOS INJ 10 MG/1 ML VIAL IV SCH (12:13)
[2020-08-22] MEDS: METFORMIN HCL 500 MG TABLET PO SCH (12:13)
[2020-08-22] MEDS: ASPIRIN 81 MG TABLET, ENT COATED PO SCH (12:13)
[2020-08-22] MEDS: CEFTRIAXONE 1 GM/D5W RTU 1 GM/50 ML RTUPB IV SCH (12:15)
[2020-08-22 12:50] VITALS: BP 117/76
--- NOTE | 2020-08-22 13:01 | PDOC DISCHARGE SUMMARY ---
Impression - Admit/DC Date/PCP Admission Date/Primary Care Provider: 08/20/20 14:04 Discharge Date: 08/22/20 - Discharge Diagnosis (1) Acute respiratory failure with hypoxia Is this a current diagnosis for this admission?: Yes (2) Pneumonia due to COVID-19 virus Is this a current diagnosis for this admission?: Yes (3) Hyperglycemia due to type 2 diabetes mellitus Is this a current diagnosis for this admission?: Yes (4) HTN (hypertension) Is this a current diagnosis for this admission?: Yes (5) History of CVA (cerebrovascular accident) Is this a current diagnosis for this admission?: Yes (6) Hyperlipidemia due to type 2 diabetes mellitus Is this a current diagnosis for this admission?: Yes (7) Depression as late effect of cerebrovascular accident (CVA) Is this a current diagnosis for this admission?: Yes - Assessment Summary: (1) Pneumonia due to COVID-19 virus Is this a current diagnosis for this admission?: Yes Plan: 2119-patient is going to be admitted to [facility] as an inpatient with a diagnosis of COVID-19 pneumonia. Started on convulsant plasma, dexamethasone 6 mg IV daily, multivitamins including zinc, vitamin D, vitamin C, started on IV Rocephin 1 g daily, Zithromax 500 mg IV daily. Patient will be on treatment dose of Lovenox. bllod Cultures are pending patient started on DuoNeb nebulizations. (2) acute respiratory failure with hypoxia Is this a current diagnosis for this admission?: Yes Plan: 08/20/2020-patient came in with acute hypoxic respiratory failure most likely secondary to COVID-19 pneumonia. On oxygen supplementations. To continue DuoNeb nebulizations. (3) HTN (hypertension) Is this a current diagnosis for this admission?: No Plan: 08/20/2020-patient has history of chronic essential hypertension to resume his home medications. (4) hyperglycemia due to diabetes mellitus Is this a current diagnosis for this admission?: No Plan: 08/20/2020-patient has history of type [address] him on insulin sliding scale before meals and at bedtime. To resume his home medications. To check for hemoglobin A1c. (5) history of CVA Is this a current diagnosis for this admission?: No Plan: 08/20/2020-patient history of CVA 6 years ago affecting the speech and right side of the body. To continue aspirin, atorvastatin at this time. (6) depression (7) hyperlipidemia 08/21/2020 Acute hypoxic respiratory failure secondary to Covid pneumonia-continue antibiotics, steroids, supplements and supplemental oxygen as needed. Nebulizer treatments available as needed. Will discontinue therapeutic Lovenox and start prophylactic dose. Resume aspirin and Plavix for history of heart disease and stroke. Resume carvedilol, atorvastatin and Escitalopram. Continue diabetic/cardiac diet and resume Metformin. Accu-Cheks and sliding scale coverage. 08/22/2020 Patient has been stable on room air for over 12 hours. He appears very comfortable. He is back on his regular medications. He is stable for discharge to home. - Additional Information Resuscitation Status: Full Code Discharge Diet: Cardiac, Diabetic Discharge Activity: Activity As Tolerated, Slowly Increase Activity Prescriptions: Methylprednisolone [Methylpred Dp] 4 mg PO ASDIR #1 tab.ds.pk Benzonatate [Tessalon Perles 100 mg Capsule] 100 mg PO Q8 PRN 10 Days #30 capsule PRN Reason: Cough Azithromycin [Zithromax 250 mg Tablet] 250 mg PO DAILY #5 tablet Home Medications: Atorvastatin Calcium [Lipitor 80 mg Tablet] 80 mg PO DAILY 08/20/20 Carvedilol [Coreg 6.25 mg Tablet] 6.25 mg PO Q12 08/20/20 Clopidogrel Bisulfate [Plavix 75 mg Tablet] 75 mg PO DAILY 08/20/20 Diazepam [Valium] 5 mg PO DAILY 08/20/20 Escitalopram Oxalate [Lexapro 10 mg Tablet] 10 mg PO DAILY 08/20/20 Hydroxyzine Pamoate [Vistaril 25 mg Capsule] 25 mg PO BIDP PRN 08/20/20 Metformin HCl [Glucophage 500 mg Tablet] 500 mg PO BID 08/20/20 Permethrin [Acticin 5% Cream 60 gm] 60 gm TP DAILY 08/20/20 Ascorbic Acid [Vitamin C 500 mg Tablet] 500 mg PO BID tablet 08/22/20 Aspirin [Ecotrin 81 mg EC Tablet] 81 mg PO DAILY tabec 08/22/20 Azithromycin [Zithromax 250 mg Tablet] 250 mg PO DAILY #5 tablet 08/22/20 Benzonatate [Tessalon Perles 100 mg Capsule] 100 mg PO Q8 PRN 10 Days #30 capsule 08/22/20 Cholecalciferol (Vitamin D3) [Vitamin D3 1000 Unit Tablet] 2,000 unit PO DAILY tablet 08/22/20 Methylprednisolone [Methylpred Dp] 4 mg PO ASDIR #1 tab.ds.pk 08/22/20 Promethazine HCl [Phenergan 25 mg Tablet] 12.5 mg PO Q6HP PRN tablet 08/22/20 Zinc Sulfate [Zinc-220 Capsule] 220 mg PO DAILY capsule 08/22/20 History of Present Illiness History of Present Illness: DEANN EM is a 65 year old male with a history of hypertension, diabetes mellitus, stroke 6 years ago with right-sided weakness and difficulty in articulation was tested positive for COVID-August 08 came to the ER with complaints of shortness of breath associated with cough. Pulse ox is in the 80s on arrival requiring oxygen supplementation. At the time of my examination pulse ox is 96% 2 L. Chest x-ray indicated above worsening opacifications. WBC count is elevated 11,700. Acute phase reactant lab work is pending. Medical consult was called for admission. Patient agreed to stay in the hospital for further management. Hospital Course Hospital Course: As above Physical Exam Vital Signs: Temp Pulse Resp BP Pulse Ox 97.5 F 80 16 117/76 95 08/22/20 12:46 08/22/20 12:46 08/22/20 12:46 08/22/20 12:46 08/22/20 12:46 Intake & Output 08/21/20 08/22/20 08/23/20 06:59 06:59 06:59 Intake Total 740 3357 Output Total 955 600 Balance 740 2402 -600 Weight 94.5 kg 97 kg General appearance: PRESENT: no acute distress, cooperative, well-developed Respiratory exam: PRESENT: clear to auscultation yoko, symmetrical, unlabored. ABSENT: rales, rhonchi, tachypnea, wheezes Cardiovascular exam: PRESENT: RRR, +S1, +S2 GI/Abdominal exam: PRESENT: normal bowel sounds, soft. ABSENT: tenderness Rectal exam: PRESENT: deferred Musculoskeletal exam: PRESENT: ambulatory. ABSENT: deformity, dislocation Neurological exam: PRESENT: alert, awake, oriented to person, oriented to place, oriented to situation, aphasic - Still some aphasia as a late effect of his stroke. ABSENT: altered Results Laboratory Results: WBC 9.9 10^3/uL (4.0-10.5) 08/21/20 05:26 RBC 4.56 10^6/uL (4.35-5.55) 08/21/20 05:26 Hgb 13.7 g/dL (13.5-17.0) 08/21/20 05:26 Hct 39.6 % (37.9-51.0) 08/21/20 05:26 MCV 87 fl (80-97) 08/21/20 05:26 MCH 30.0 pg (27.0-33.4) 08/21/20 05:26 MCHC 34.5 g/dL (32.0-36.0) 08/21/20 05:26 RDW 13.6 % (11.5-14.0) 08/21/20 05:26 Plt Count 331 10^3/uL (150-450) 08/21/20 05:26 Lymph % (Auto) 13.0 % (13-45) 08/21/20 05:26 [place] % (Auto) 11.1 % (3-13) 08/21/20 05:26 Eos % (Auto) 0.1 % (0-6) 08/21/20 05:26 Baso % (Auto) 0.4 % (0-2) 08/21/20 05:26 Absolute Neuts (auto) 7.5 10^3/uL (1.7-8.2) 08/21/20 05:26 Absolute Lymphs (auto) 1.3 10^3/uL (0.5-4.7) 08/21/20 05:26 Absolute Monos (auto) 1.1 10^3/uL (0.1-1.4) 08/21/20 05:26 Absolute Eos (auto) 0.0 10^3/uL (0.0-0.6) 08/21/20 05:26 Absolute Basos (auto) 0.0 10^3/uL (0.0-0.2) 08/21/20 05:26 Seg Neutrophils % 75.4 % (42-78) 08/21/20 05:26 D-Dimer 0.41 ug/mL (0.00-0.50) 08/20/20 11:48 Carbonic Acid 0.84 mmol/L (1.05-1.35) L 08/20/20 12:32 HCO3/H2CO3 Ratio 27:1 08/20/20 12:32 ABG pH 7.53 (7.35-7.45) H 08/20/20 12:32 ABG pCO2 27.9 mmHg (35-45) L 08/20/20 12:32 ABG pO2 67.0 mmHg (80-100) L 08/20/20 12:32 ABG HCO3 23.0 mmol/L (20-24) 08/20/20 12:32 ABG Total CO2 23.9 mmol/L (23-27) 08/20/20 12:32 ABG O2 Saturation 95.5 % (94-98) 08/20/20 12:32 ABG Base Excess 1.5 mmol/L 08/20/20 12:32 FiO2 2.5L 08/20/20 12:32 Sodium 136.3 mmol/L (137-145) L 08/22/20 05:43 Potassium 4.0 mmol/L (3.6-5.0) 08/22/20 05:43 Chloride 106 mmol/L (98-107) 08/22/20 05:43 Carbon Dioxide 25 mmol/L (22-30) 08/22/20 05:43 Anion Gap 5 (5-19) 08/22/20 05:43 BUN 14 mg/dL (7-20) 08/22/20 05:43 Creatinine 0.70 mg/dL (0.52-1.25) 08/22/20 05:43 Est GFR ( Amer) > 60 (>60) 08/22/20 05:43 Est GFR (MDRD) Non-Af > 60 (>60) 08/22/20 05:43 Glucose 104 mg/dL (75-110) 08/22/20 05:43 POC Glucose 145 mg/dL (70-110) H 08/22/20 11:19 Lactic Acid 1.5 mmol/L (0.7-2.1) 08/20/20 11:48 Calcium 8.7 mg/dL (8.4-10.2) 08/22/20 05:43 Magnesium 2.4 mg/dL (1.6-2.3) H 08/22/20 05:43 Ferritin 599.00 ng/mL (17.9-464.0) H 08/21/20 05:26 Total Bilirubin 0.8 mg/dL (0.2-1.3) 08/21/20 05:26 Direct Bilirubin 0.2 mg/dL (0.0-0.4) 08/21/20 05:26 Neonat Total Bilirubin Not Reportable 08/21/20 05:26 Neonat Direct Bilirubin Not Reportable 08/21/20 05:26 Neonat Indirect Bili Not Reportable 08/21/20 05:26 AST 30 U/L (17-59) 08/21/20 05:26 ALT 41 U/L (<50) 08/21/20 05:26 Alkaline Phosphatase 129 U/L (38-126) H 08/21/20 05:26 Creatine Kinase 104 U/L (55-170) 08/21/20 05:26 C-Reactive Protein 39.7 mg/L (<10.0) H 08/21/20 05:26 NT-Pro-B Natriuret Pep 204 pg/mL (<125) H 08/20/20 11:48 Total Protein 6.3 g/dL (6.3-8.2) 08/21/20 05:26 Albumin 3.4 g/dL (3.5-5.0) L 08/21/20 05:26 Urine Color YELLOW 08/20/20 15:38 Urine Appearance CLEAR 08/20/20 15:38 Urine pH 7.0 (5.0-9.0) 08/20/20 15:38 Ur Specific [place] 1.006 08/20/20 15:38 Urine Protein NEGATIVE mg/dL (NEGATIVE) 08/20/20 15:38 Urine Glucose (UA) NEGATIVE mg/dL (NEGATIVE) 08/20/20 15:38 Urine Ketones NEGATIVE mg/dL (NEGATIVE) 08/20/20 15:38 Urine Blood NEGATIVE (NEGATIVE) 08/20/20 15:38 Urine Nitrite NEGATIVE (NEGATIVE) 08/20/20 15:38 Urine Bilirubin NEGATIVE (NEGATIVE) 08/20/20 15:38 Urine Urobilinogen NEGATIVE mg/dL (<2.0) 08/20/20 15:38 Ur Leukocyte Esterase NEGATIVE (NEGATIVE) 08/20/20 15:38 Urine WBC (Auto) 0 /HPF 08/20/20 15:38 Urine RBC (Auto) 1 /HPF 08/20/20 15:38 Urine Ascorbic Acid NEGATIVE (NEGATIVE) 08/20/20 15:38 Influenza A (RT-PCR) NEGATIVE (NEGATIVE) 08/20/20 15:15 Influenza B (RT-PCR) NEGATIVE (NEGATIVE) 08/20/20 15:15 RSV (RT-PCR) NEGATIVE (NEGATIVE) 08/20/20 15:15 SARS-CoV-2 Rap RNA(RT-PCR) POSITIVE (NEGATIVE) 08/20/20 15:15 Blood Type O POSITIVE 08/20/20 15:52 08/20/20 11:48 NT-Pro-B Natriuret Pep 204 H Impressions: Chest/Abdomen CTA 08/20/20 00:00 IMPRESSION: 1. No evidence for acute pulmonary emboli 2. Bilateral multifocal peripheral ground-glass opacities in the lungs with focal areas of consolidation, mainly in the upper 2/3's of the lungs, more so on the right. Clinical imaging features raise the question of COVID pneumonia. Other diagnostic considerations include atypical infections, inflammatory/infectious etiologies. Chest X-Ray 08/20/20 10:54 IMPRESSION: Increased bilateral upper lobe predominant and peripheral patchy parenchymal opacities. Plan Health Concerns: Covid pneumonia in a patient already with chronic debility from stroke Plan of Treatment: Resume previous medications. I discussed the fact that his recovery will be slow specifically in terms of energy levels and stamina. This will return slowly. Goals: Complete recovery from Covid pneumonia Time Spent: Greater than 30 Minutes Stroke Is this a Stroke Patient?: No Acute Heart Failure Is this a Heart Failure Patient?: No
== END 2020-08-22 15:29 | disposition home or self-care (01) | DRG 177 ==
LOC: ER 09:50 → EH 14:04 → 3W 21:53
PROVIDERS: ADMIT Internal Medicine; ATTEND Hospitalist
PROC: XW13325 Transfusion of Convalescent Plasma (Nonautologous) into Peripheral Vein, Percutaneous Approach, New Technology Group 5 (ICD-10-PCS; principal; 2020-08-21)
DX: U07.1 COVID-19 (principal); J12.89 Other viral pneumonia; J96.01 Acute respiratory failure with hypoxia; I69.351 Hemiplegia and hemiparesis following cerebral infarction affecting right dominant side; E11.65 Type 2 diabetes mellitus with hyperglycemia; I10 Essential (primary) hypertension; F32.9 Major depressive disorder, single episode, unspecified; E78.5 Hyperlipidemia, unspecified; Z79.84 Long term (current) use of oral hypoglycemic drugs; Z79.82 Long term (current) use of aspirin; Z79.899 Other long term (current) drug therapy; Z79.02 Long term (current) use of antithrombotics/antiplatelets; I69.320 Aphasia following cerebral infarction; I25.2 Old myocardial infarction; Z83.3 Family history of diabetes mellitus; Z82.49 Family history of ischemic heart disease and other diseases of the circulatory system
CPT/HCPCS: 36415; 36430; 71045; 71275; 80048; 80053; 81001; 82550; 82728; 82803; 82962; 83605; 83735; 83880; 85025; 85379; 86140; 86900; 86901; 87040; 87077; 87150; 87186; 93005; 93010; 94640; 96365; 99285; 0241U; C9803; J0456; J0696; J1100; J1650; J1815; J2405; J3490; J7030; J7060; J7613

== ENCOUNTER 2020-08-26 08:50 | Emergency (ER) | payer MEDICARE ==
--- NOTE | 2020-08-26 13:28 | ER Document Report ---
Entered by CELENA MCFARLANE SCRIBE 08/26/20 0229 Acting as scribe for:MOIZ BLANCO MD ED General - General Chief Complaint: Cough Stated Complaint: COUGH,CONGESTION,WEAKNESS Mode of Arrival: Ambulatory Information source: Patient Notes: This 65 year old male patient with a history of hypertension, type 2 diabetes mellitus, and CVA x6 years ago with residual right-sided weakness and speech difficulties presents to the ED today with complaints of shortness of breath and cough. Patient was admitted on 08/20 for COVID pneumonia and acute respiratory failure with hypoxia and was discharged on 08/22. Denies fever, loss of taste/smell, nausea, vomiting, or diarrhea. - Related Data Allergies/Adverse Reactions: No Known Allergies Allergy (Verified 08/26/20 09:22) Home Medications: no changes from inpt 3 days ago Past Medical History - General Information source: Patient, [facility] Records - Social History Smoking Status: Unknown if Ever Smoked Cigarette use (# per day): No Chew tobacco use (# tins/day): No Smoking Education Provided: No Frequency of alcohol use: None Drug Abuse: None Family History: Reviewed & Not Pertinent, Hypertension Patient has suicidal ideation: No Patient has homicidal ideation: No - Past Medical History Cardiac Medical History: Reports: Hx Heart Attack - 2015, Hx Hypercholesterolemia, Hx Hypertension Pulmonary Medical History: Reports: Hx Pneumonia Endocrine Medical History: Reports: Hx Diabetes Mellitus Type 2 Review of Systems - Review of Systems Constitutional: See HPI, Recent illness. denies: Fever EENT: See HPI. denies: Other - Loss of taste/smell Cardiovascular: No symptoms reported Respiratory: See HPI, Cough, Short of breath Gastrointestinal: See HPI. denies: Diarrhea, Nausea, Vomiting Genitourinary: No symptoms reported Male Genitourinary: No symptoms reported Musculoskeletal: No symptoms reported Skin: No symptoms reported Hematologic/Lymphatic: No symptoms reported Neurological/Psychological: No symptoms reported -: Yes All other systems reviewed and negative Physical Exam - Vital signs Vitals: Temp Pulse Resp BP Pulse Ox 97.7 F 80 24 H 127/82 H 95 08/26/20 09:03 08/26/20 09:03 08/26/20 09:03 08/26/20 09:03 08/26/20 09:03 - General General appearance: Alert In distress: None - HEENT Head: Normocephalic, Atraumatic Eyes: Normal Pupils: PERRL - Respiratory Respiratory status: No respiratory distress Chest status: Nontender Breath sounds: Normal. No: Wheezing Chest palpation: Normal - Cardiovascular Rhythm: Regular Heart sounds: Normal auscultation, S1 appreciated, S2 appreciated Murmur: No Friction rub: No Gallop: None auscultated - Abdominal Inspection: Normal Distension: No distension Bowel sounds: Normal Tenderness: Nontender - Abdomen soft Organomegaly: No organomegaly - Back Back: Normal, Nontender - Extremities General upper extremity: Normal inspection General lower extremity: Normal inspection. No: Edema - Neurological Neuro grossly intact: Yes Orientation: AAOx4 Speech: Expressive aphasia - At baseline due to CVA x6 years ago - Psychological Associated symptoms: Normal affect, Normal mood - Skin Skin Temperature: Warm Skin Moisture: Dry Skin Color: Normal Course - Re-evaluation Re-evalutation: 08/26/20 13:23 Patient resting comfortably. Not showing any signs of respiratory distress. - Vital Signs Vital signs: Temp Pulse Resp BP Pulse Ox 97.7 F 80 20 125/81 93 08/26/20 09:03 08/26/20 09:03 08/26/20 12:09 08/26/20 12:09 08/26/20 13:00 08/26/20 13:23 Vital signs stable 08/26/20 13:26 Pulse ox 97% room air respiratory rate 20 afebrile. - Laboratory Results Critical Laboratory Results Reviewed: No Critical Results - Radiology Results Critical Radiology Results Reviewed: No Critical Results Discharge - Discharge Clinical Impression: Lab test positive for detection of COVID-19 virus, Shortness of breath, Cough Condition: Stable Disposition: HOME, SELF-CARE Additional Instructions: You call me you recently was hospitalized for low oxygen and respiratory distress with COVID-19 positive. After inpatient care you were discharged home with medications to take which you have completed your return to the emergency room today was because he still has some areas of shortness of breath on occasion. Your oxygen saturations are 97% room air and your exam shows clear lungs without any wheezing or shortness of breath. We have not found a reason that you need to be readmitted to the hospital and we recommend that you continue to take your medicines as prescribed from your discharge from the ED we do recommend you begin zinc tablets 50 mg 1 tablet a day. Also begin vitamin C 1000 mg twice a day, and also vitamin D3 2000 international units once a day. Prescriptions: Benzonatate [Tessalon Perles 100 mg Capsule] 100 mg PO Q8HP PRN #40 capsule PRN Reason: I personally performed the services described in the documentation, reviewed and edited the documentation which was dictated to the scribe in my presence, and it accurately records my words and actions.
[2020-08-26 13:47] VITALS: BP 130/86
== END 2020-08-26 13:55 | disposition home or self-care (01) ==
LOC: ER 08:50
DX: U07.1 COVID-19 (principal); R06.02 Shortness of breath; R05 Cough; R09.81 Nasal congestion; R53.1 Weakness; I10 Essential (primary) hypertension; E11.9 Type 2 diabetes mellitus without complications; Z86.73 Personal history of transient ischemic attack (TIA), and cerebral infarction without residual deficits; I25.2 Old myocardial infarction
CPT/HCPCS: 99283

== ENCOUNTER 2020-09-14 10:03 | Emergency (ER) | payer MEDICARE ==
--- NOTE | 2020-09-14 11:21 | ER Document Report ---
ED Medical Screen (RME) - General Chief Complaint: High Blood Sugar Stated Complaint: HIGH BLOOD SUGAR Time Seen by Provider: 09/14/20 11:16 Notes: HPI: 65-year-old male with type 2 diabetes and multiple other medical problems presenting for elevated blood sugar today greater than 400 at home. Yesterday blood sugar was fine. He takes metformin unknown amount. Denies any other physical complaints at this time but was concerned about the high blood sugar. PHYSICAL EXAMINATION: No acute distress, lung sounds clear to auscultation not significantly tachycardic. I have greeted and performed a rapid initial assessment of this patient. A comprehensive ED assessment and evaluation of the patient, analysis of test results and completion of medical decision making process will be conducted by an additional ED providers. Please note that clinical decision making for this patient was made during the 2019 pandemic of novel coronavirus which caused a significant strain on the healthcare system including at this particular facility. Criteria for admission discharge and level of care decisions as well as treatment decisions have necessarily changed - Related Data Allergies/Adverse Reactions: No Known Allergies Allergy (Verified 08/26/20 09:22) Past Medical History - Past Medical History Cardiac Medical History: Reports: Hx Heart Attack - 2014, Hx Hypercholesterolemia, Hx Hypertension Pulmonary Medical History: Reports: Hx Pneumonia Endocrine Medical History: Reports: Hx Diabetes Mellitus Type 2 Psychiatric Medical History: Denies: Hx Depression Physical Exam - Vital signs Vitals: Temp Pulse Resp BP Pulse Ox 97.6 F 77 16 132/87 H 99 09/14/20 10:25 09/14/20 10:25 09/14/20 10:09/14/20 10:09/14/20 10:25 Course - Vital Signs Vital signs: Temp Pulse Resp BP Pulse Ox 97.6 F 77 16 132/87 H 99 09/14/20 10:25 09/14/20 10:25 09/14/20 10:25 09/14/20 10:25 09/14/20 10:25
[2020-09-14 11:41] LABS: VENOUS BLOOD BASE EXCESS -0.3 mmol/L; VENOUS BLOOD HCO3 25.6 mmol/L (20-32); VENOUS BLOOD PCO2 46.5 mmHg (35-63); VENOUS BLOOD PH 7.36 (7.30-7.42)
[2020-09-14 11:46] LABS: ABSOLUTE BASOPHILS # (AUTO) 0.1 10^3/uL (0.0-0.2); ABSOLUTE EOSINOPHILS # (AUTO) 0.2 10^3/uL (0.0-0.6); ABSOLUTE LYMPHOCYTES (AUTO) 2.4 10^3/uL (0.5-4.7); ABSOLUTE MONOCYTES (AUTO) 0.7 10^3/uL (0.1-1.4); ABSOLUTE NEUT (AUTO) 3.6 10^3/uL (1.7-8.2); BASOPHILS % (AUTO) 1.3 % (0-2); EOSINOPHILS % (AUTO) 2.6 % (0-6); HEMATOCRIT 42.3 % (37.9-51.0); HEMOGLOBIN 14.9 g/dL (13.5-17.0); MEAN CORPUSCULAR HEMOGLOBIN 31.1 pg (27.0-33.4); MEAN CORPUSCULAR HGB CONC 35.2 g/dL (32.0-36.0); MEAN CORPUSCULAR VOLUME 88 fl (80-97); MONOCYTES % (AUTO) 10.3 % (3-13); PLATELET COUNT 240 10^3/uL (150-450); RED BLOOD COUNT 4.78 10^6/uL (4.35-5.55); RED CELL DISTRIBUTION WIDTH 14.7 % (11.5-14.0); SEGMENTED NEUTROPHILS % (AUTO) 51.8 % (42-78); TOTAL CELLS COUNTED % (AUTO) 100 %
[2020-09-14 11:54] LABS: APPEARANCE,URINE CLEAR; BILIRUBIN,URINE NEGATIVE (NEGATIVE); COLOR,URINE YELLOW; GLUCOSE, URINE >=500 mg/dL (NEGATIVE); KETONES,URINE NEGATIVE (NEGATIVE); LEUKOCYTE ESTERASE,URINE NEGATIVE (NEGATIVE); NITRITE,URINE NEGATIVE (NEGATIVE); PROTEIN,URINE NEGATIVE (NEGATIVE); UROBILINOGEN,URINE NEGATIVE mg/dL (<2.0)
[2020-09-14 11:59] LABS: ALBUMIN 4.1 g/dL (3.5-5.0); ALKALINE PHOSPHATASE 142 U/L (38-126); ANION GAP 9 (5-19); ASPARTATE AMINO TRANSFERASE 22 U/L (17-59); BILIRUBIN,DIRECT 0.1 mg/dL (0.0-0.4); BILIRUBIN,TOTAL 0.4 mg/dL (0.2-1.3); BLOOD UREA NITROGEN 13 mg/dL (7-20); CARBON DIOXIDE 25 mmol/L (22-30); CHLORIDE 102 mmol/L (98-107); GLUCOSE 256 mg/dL (75-110); POTASSIUM 4.2 mmol/L (3.6-5.0); TOTAL PROTEIN 6.9 g/dL (6.3-8.2)
--- NOTE | 2020-09-14 15:33 | ER Document Report ---
ED General - General Chief Complaint: High Blood Sugar Stated Complaint: HIGH BLOOD SUGAR Time Seen by Provider: 09/14/20 11:16 - HPI Notes: Chief complaint: High blood sugar History of present illness: 65-year-old male with history of diabetes mellitus type 2 discharged from the hospital here about 3 weeks ago after inpatient treatment for community-acquired pneumonia and COVID-19 infection. He is concerned now because his blood sugars are over 300 at home with a glucometer when he makes random measurements. He has polydipsia, polyuria, polyphagia and has lost about 30 pounds of weight in the last 3 months. He is not following any prescribed diet and has a substantial intake of sweets, soft drinks and fruit juice. He is not regularly seeing a primary care physician at present. He is currently taking Metformin 500 mg twice daily. - Related Data Allergies/Adverse Reactions: No Known Allergies Allergy (Verified 08/26/20 09:22) Home Medications: Atorvastatin, Plavix, Metformin, Carvedilol, Diazepam Past Medical History - General Information source: Patient, Relative, [facility] Records - Social History Smoking Status: Never Smoker Frequency of alcohol use: None Drug Abuse: None Lives with: Spouse/Significant other Family History: Reviewed & Not Pertinent, Hypertension - Past Medical History Cardiac Medical History: Reports: Hx Heart Attack - 2015, Hx Hypercholesterolemi a, Hx Hypertension Pulmonary Medical History: Reports: Hx Pneumonia Endocrine Medical History: Reports: Hx Diabetes Mellitus Type 2 Psychiatric Medical History: Denies: Hx Depression Past Surgical History: Reports: Hx Cardiac Catheterization Review of Systems - Review of Systems Notes: Constitutional: Negative for fever. HENT: Negative for sore throat. Eyes: Negative for visual changes. Cardiovascular: Negative for chest pain. Respiratory: Negative for shortness of breath. Gastrointestinal: Negative for abdominal pain, vomiting or diarrhea. Genitourinary: Polyuria and nocturia present. Negative for dysuria. Musculoskeletal: Negative for back pain. Skin: Negative for rash. Neurological: Patient has some mild residual motor impairment right upper and lower extremity related to old CVA. Negative for headaches, or numbness. 10 point ROS negative except as marked above and in HPI. Physical Exam - Vital signs Vitals: Temp Pulse Resp BP Pulse Ox 97.6 F 77 16 132/87 H 99 09/14/20 10:25 09/14/20 10:25 09/14/20 10:25 09/14/20 10:25 09/14/20 10:25 - Notes Notes: GENERAL: Well-developed well-nourished male approximately stated age appearing in no acute distress. SKIN: Good turgor no rashes. HEAD: Normocephalic atraumatic. EYES: PERRLA. EOMI. Conjunctivae and sclerae clear. EARS: CANALS AND TMS CLEAR. NOSE: CLEAR. MOUTH: Moist mucosa. Good dentition. No stridor or edema. No drooling. NECK: Supple. No masses or thyromegaly. No adenopathy. Carotids 2+ without bruits. No JVD. BACK: Symmetrical without tenderness. CHEST: Respirations unlabored. Breath sounds clear and symmetrical. HEART: Regular rhythm. No murmur gallop or rub. ABDOMEN: Soft nontender without masses, organomegaly or rebound. Bowel sounds normally active. No bruits. GENITALIA: Deferred. EXTREMITIES: No edema. No calf tenderness. Cap refill less than 1.5 seconds. Dorsalis pedis and posterior tibial pulses 3+ and symmetrical. NEUROLOGICAL: GCS 15. Alert and oriented x3. Minimal motor impairment right upper and lower extremities which is old per patient and his . Fluent speech. Cranial nerves II through XII intact. Sensorimotor and cerebellar normal. Normal tone. PSYCHIATRIC: Appropriate affect. Course - Re-evaluation Re-evalutation: 09/14/20 15:31 Patient's blood sugar is elevated in the 250 range here. His venous pH is normal and his bicarb is normal. His type 2 diabetes is obviously not well controlled and he lacks basic understanding about diabetes mellitus type 2. I talked with him and his about this at some length. I recommended a simple "no sugar added" diet and made suggestions for carbohydrate reduction. I suggested that they increase his Metformin to 1000 mg in the morning and 500 mg at night and also that he try to do some walking or other simple exercises. Additionally I recommended that they check blood sugars before meals and at bedtime with his glucometer and will refer him to a primary care physician. I have emphasized the importance of requesting a referral to a cd mixer helper for more detailed dietary counseling. Findings, clinical impression and plan of treatment have been discussed with patient/family. Understanding of current findings and recommendations has been acknowledged by them and there is agreement regarding disposition and follow-up. - Vital Signs Vital signs: Temp Pulse Resp BP Pulse Ox 97.6 F 77 16 132/87 H 99 09/14/20 10:25 09/14/20 10:25 09/14/20 10:25 09/14/20 10:25 09/14/20 10:25 - Laboratory Results Result Diagrams: 09/14/20 11:30 09/14/20 11:30 Laboratory Results Interpreted: 09/14/20 09/14/20 09/14/20 11:30 11:30 11:34 RDW 14.7 H Sodium 136.3 L Glucose 256 H POC Glucose Alkaline Phosphatase 142 H Urine Glucose (UA) >=500 H Urine Ascorbic Acid 40 H 09/14/20 11:39 RDW Sodium Glucose POC Glucose 263 H Alkaline Phosphatase Urine Glucose (UA) Urine Ascorbic Acid Critical Laboratory Results Reviewed: Yes Attending or Supervising Physician who Reviewed Labs: ANAIS HUBBARD - Radiology Results Critical Radiology Results Reviewed: No Critical Results Discharge - Discharge Clinical Impression: Diabetes mellitus type 2, History of CVA (cerebrovascular accident) Hyperglycemia due to type 2 diabetes mellitus Qualifiers: Diabetes mellitus superintendent terminal insulin use: without detention use Qualified Code(s): E11.65 - Type 2 diabetes mellitus with hyperglycemia Disposition: HOME, SELF-CARE Additional Instructions: Diabetes You have an abnormally high blood sugar, suspicious for diabetes. Not all high blood sugar requires long-term treatment. High blood sugar can be due to medications, , or the stress of illness. (These cases are "borderline diabetes.") If the doctor feels your high blood sugar might get better with time, you may not require treatment now. You will be scheduled for further evaluation. It's very important that you follow through. Uncontrolled high blood sugar leads to early heart disease, strokes, nerve damage, eye damage, and kidney damage. All diabetics should follow a diet designed to control the blood sugar. Overweight diabetics should exercise regularly and lose weight. If this is not sufficient to control the blood sugar, pills or insulin shots are necessary. Younger people who develop diabetes almost always require insulin daily. Home testing of blood sugars or urine sugar is required. Diabetic teaching is available to help you figure insulin doses and monitor the blood sugar. Call the physician if there is faintness, excess sleepiness, or very rapid breathing. If hypoglycemia (LOW blood sugar) develops, symptoms are shakiness, weakness, sweating, and confusion. In this case, you should eat or drink something with sugar at once. Dietary recommendations: Avoid bread, pasta and rice. Avoid adding sugar to any foods. Avoid fruit juices and soft drinks. You may consume artificially flavored soft drinks. Avoid candy and desserts. Exercise recommendations: A brief walk every day will be helpful to control your blood sugar. Blood sugar testing recommendations: Record home glucose testing before each meal and at bedtime. Medication recommendations: You are presently taking Metformin 500 mg twice a day. Increase your morning Metformin to 2 tablets (1000 mg) and continue 500 mg at night as previously prescribed. Follow-up recommendations: You will be provided the name of a primary care provider and you should schedule an appointment at your earliest convenience. You need to discuss getting a test for your hemoglobin A1c level. You should also ask them for a referral to a cd mixer helper for more detailed dietary counseling. Return here as needed for new or worsening symptoms: Pain that is worsening or unimproved Uncontrolled vomiting High fever or shaking chills Overall worsening Referrals: [facility] [Provider Group] - Follow up as needed
[2020-09-14 16:13] VITALS: BP 131/82
== END 2020-09-14 16:13 | disposition home or self-care (01) ==
LOC: ER 10:03
DX: E11.65 Type 2 diabetes mellitus with hyperglycemia (principal); Z86.16 Personal history of COVID-19; Z86.73 Personal history of transient ischemic attack (TIA), and cerebral infarction without residual deficits; Z79.84 Long term (current) use of oral hypoglycemic drugs; E78.00 Pure hypercholesterolemia, unspecified; I10 Essential (primary) hypertension; I25.2 Old myocardial infarction
CPT/HCPCS: 36415; 80053; 81001; 82803; 82962; 85025; 99283